=== PATIENT | male | born 1965 | race African-American/Black ===

== ENCOUNTER 2021-01-12 21:18 | Emergency (ER) | payer MEDICARE, MEDICAID ==
[~2021-01-12] VITALS: Ht 177.8 cm; Wt 104.3 kg
[2021-01-12 21:28] VITALS: BP 148/93
== END 2021-01-12 23:14 | disposition left against medical advice (07) ==
LOC: EDBD 21:18 → ER 21:22
DX: S00.03XA Contusion of scalp, initial encounter (principal); E78.5 Hyperlipidemia, unspecified; I10 Essential (primary) hypertension; F10.129 Alcohol abuse with intoxication, unspecified; F17.210 Nicotine dependence, cigarettes, uncomplicated; W18.00XA Striking against unspecified object with subsequent fall, initial encounter; Y93.89 Activity, other specified; Y92.89 Other specified places as the place of occurrence of the external cause; Y99.8 Other external cause status; Y90.8 Blood alcohol level of 240 mg/100 ml or more
CPT/HCPCS: 93005